=== PATIENT | female | born 1945 | race Caucasian/White ===

== ENCOUNTER 2016-10-06 09:31 | Inpatient (IN) | payer MEDICARE, BC ==
[2016-10-04 12:19] LABS: BASOPHILS 0.3 %; BASOPHILS ABSOLUTE 0.03 10/3/uL (0.0-0.16); EOSINOPHILS 0.2 %; EOSINOPHILS ABSOLUTE 0.02 10/3/uL (0.0-0.53); HEMOGLOBIN 11.7 g/dL (12.0-16.0); IMMATURE GRANULOCYTES 0.2 %; IMMATURE GRANULOCYTES ABSOLUTE 0.02 10/3/uL (0.0-0.11); LYMPHOCYTES ABSOLUTE 1.04 10/3/uL (0.67-4.30); MEAN CORPUS HGB CONC 33.3 g/dL (32.0-36.0); MEAN CORPUSCULAR HEMOGLOB 32.1 pg (26.0-34.0); MEAN CORPUSCULAR VOLUME 96.2 fL (80-100); MEAN PLATELET VOLUME 10.3 fL (9.2-13.0); MONOCYTES 8.2 %; MONOCYTES ABSOLUTE 0.85 10/3/uL (0.21-1.20); NEUTROPHILS 81.1 %; NEUTROPHILS ABSOLUTE 8.43 10/3/uL (2.02-8.40); RBC DISTRIBUTION WIDTH 13.9 % (12.0-16.0); RED CELL COUNT 3.65 10/6/uL (4.0-5.6); WHITE BLOOD CELLS 10.4 10/3/uL (4.5-10.5)
[2016-10-04 12:23] LABS: HEMATOCRIT 35.1 % (36.0-48.0); MANUAL DIFF NO %; PLATELET COUNT 377 10/3/uL (150-400)
[2016-10-04 12:28] LABS: BUN (BLOOD UREA NITROGEN) 13 MG/DL (6-23); CALCIUM, SERUM 8.6 MG/DL (8.5-10.4); CHLORIDE, SERUM 107 MMOL/L (96-112); CO2 (CARBON DIOXIDE) 28 MMOL/L (24-34); CREATININE 0.79 MG/DL (0.55-1.02); GFR AFRICAN AMERICAN 89 ML/MIN (>=60); GFR NON AFRICAN AMERICAN 76 ML/MIN (>=60); GLUCOSE, SERUM 78 MG/DL (60-99); POTASSIUM, SERUM 4.2 MMOL/L (3.5-5.3); SODIUM, SERUM 141 MMOL/L (135-148)
[2016-10-04 12:32] LABS: ASCORBIC ACID (UR NOT ORDER) NEG (NEG); BILIRUBIN, URINE NEGATIVE (NEG); KETONE, URINE NEGATIVE (NEG); LEUKOCYTE ESTERASE(NOT OR NEG (NEG); WBC (NOT ORDERED) (RFLEX) < 1 (0-5)
--- NOTE | ~2016-10-06 | DS ---
Discharge Summary [facility] [address] [place]. [address] NAME: ALINE SARGENT : 49 STATUS : DIS IN PAT#: [id number] AGE: 71 ADM/REG DATE : 10/06/16 MR#: [id number] REPORT SERV DATE: 10/22/16 DICTATED BY: JEAN GUO II DATE: 10/21/16 REPORT STATUS : Draft TRANSCRIBED BY: FLORIAN DATE: 10/21/16 Data Collection from hospitalization DISCHARGE DIAGNOSES: 1. Median arcuate ligament syndrome. 2. Severe chronic mesenteric ischemia. 3. Celiac artery compression syndrome. 4. Hypothyroidism. 5. Anxiety. 6. Migraines. 7. Depression. 8. Former smoker. CONSULTATIONS: None. PROCEDURES: Lateral retroperitoneal exposure of the abdominal aorta, diversion of median arcuate ligament, celiac artery endarterectomy with Bovine patch angioplasty, placement of left thoracostomy tube on 10/06/2016. DISCHARGE MEDICATIONS: Aspirin 81 mg daily, BuSpar 10 mg at bedtime and 5 mg in the morning; vitamin D 5000 units daily, Klonopin 0.25 mg twice a day as needed, vitamin B12 1000 mcg sublingually daily, Estrace 1 mg daily, Prozac 20 mg daily, Synthroid 75 mcg daily, lutein 20 mg every day as instructed, Reglan 10 mg every 8 hours as needed, probiotic one capsule daily, fish oil 1000 mg daily, oxycodone 1-3 tablets every three hours as needed, Desyrel 50 mg at bedtime, methylfolate as instructed. She was instructed not to continue Percocet. CONDITION AT DISCHARGE: Stable. DISPOSITION: The patient was discharged home on a regular diet with activities as instructed. She would follow up with me on 10/27/2016. HOSPITAL COURSE: This is a 71-year-old female, who has had longstanding GI complaints. She had lost more than 20 pounds. She has had chronic abdominal pain. She has an extensive workup which revealed occlusion of the celiac artery, secondary to median arcuate ligament syndrome. She has had previous multiple intraabdominal surgery and was recommended that she undergo retroperitoneal repair. She was admitted to the hospital at this time for further evaluation and treatment. Upon admission, she was taken to the operating room where she underwent the above-mentioned procedure. She tolerated this well. There were no complications. On postop day #1, she was doing well. Her lungs were clear. She had occasional bowel sounds. TOOTH INSPECTOR was increased for pain. She had no nausea or vomiting. She was started on clear liquid diet. On 10/08/2016, she was up sitting in a chair. Pain was related to the chest tube site. She was tolerating clear liquids. The TOOTH INSPECTOR continued. We encouraged her to use incentive spirometry. She continued to have pain related to the chest tube, otherwise, she began to feel better. She had no shortness of breath. She was passing flatus. She remained in the ICU for pneumothorax. On 10/10/2016, she had persistent pneumothorax. She remained in the ICU. She did have some diarrhea. She remained on a full liquid diet. MiraLAX was being Discharge Summary [address] [address] NAME: ALINE SARGENT : 49 STATUS : DIS IN PAT#: [id number] AGE: 71 ADM/REG DATE : 10/06/16 MR#: [id number] REPORT SERV DATE: 10/22/16 DICTATED BY: JEAN GUO II DATE: 10/21/16 REPORT STATUS : Draft TRANSCRIBED BY: FLORIAN DATE: 10/21/16 given. On 10/11/2016, her pain was controlled. She did complain of a headache. She was breathing well. She was tolerating a regular diet. She was changed to oral pain medications. Over the next couple of days, she continued to do well. She had some increased nausea. Scopolamine patch was placed. Her chest x-ray was stable. Discharge planning was performed. Reglan was given. On 10/13/2016, her pain was controlled on oxycodone. She did have a migraine. Her nausea had decreased. Discharge instructions were given. Due to her improved and stable condition, she was discharged home with the above-stated instructions. Information collected by: Helena Jefferson I submit the above information as my discharge summary. GUANAKO/FLORIAN Jean Guo II, M.D. / [id number] CC: Azalea Gómez II, M.D.
--- NOTE | ~2016-10-06 | OP ---
Record Of Operation [facility] [address] [place]. [address] NAME: ALINE UMANZOR : 49 STATUS : ADM IN [facility]#: [id number] AGE: 71 ADM/REG DATE : 10/06/16 MR#: [id number] REPORT SERV DATE: 10/12/16 DICTATED BY: AUGIE GUO II DATE: 10/12/16 REPORT STATUS : Draft TRANSCRIBED BY: MODL DATE: 10/12/16 DATE OF PROCEDURE: 10/06/2016 SURGEON: Augie Guo M.D. KIER PLEATER: Gemini Sharma MD PREOPERATIVE DIAGNOSES: 1. Severe chronic mesenteric ischemia. 2. Celiac artery occlusion, secondary to median arcuate ligament syndrome. POSTOPERATIVE DIAGNOSES: 1. Severe chronic mesenteric ischemia. 2. Celiac artery occlusion, secondary to median arcuate ligament syndrome. PROCEDURE: 1. Lateral retroperitoneal exposure of abdominal aorta. 2. Division of median arcuate ligament. 3. Celiac artery endarterectomy with bovine patch angioplasty. 4. Placement of left thoracostomy tube. ANESTHESIA: General. IV FLUIDS: 2000 mL. ESTIMATED BLOOD LOSS: 50 mL. SPECIMENS: Plaque. CHEST TUBE: 24-Niuean. BRIEF HISTORY: Ms. Umanzor is a pleasant 71-year-old female, who has had long-standing GI complaints, as she has lost more than 20 pounds. She has chronic abdominal pain. She has had extensive workup revealing occlusion of the celiac artery, secondary to median arcuate ligament syndrome. She has had previous multiple intraabdominal surgeries. She was recommended to undergo retroperitoneal repair. DESCRIPTION OF PROCEDURE: She was taken to the operating room and placed in supine position on the table. General anesthesia was achieved. The patient was then placed in the left lateral decubitus position with an axillary roll. We then prepped and draped. The left chest, abdomen, and flank. An incision was made between the 10th and 11th rib extending from the lateral aspect of the rectus to the mid axillary line. The subcutaneous tissues were divided with electrocautery. The fascia was opened and we entered above the 10th rib into the retroperitoneal space. We then swept the peritoneum, the ureter, and abdominal contents to the right. We identified the iliolumbar vein from the left renal and ligated this with 2-0 silk. After dissecting in the superior aspect of the incision, we noticed Record Of Operation [facility] [address] [place]. [address] NAME: ALINE UMANZOR : 49 STATUS : ADM IN PAT#: [id number] AGE: 71 ADM/REG DATE : 10/06/16 MR#: [id number] REPORT SERV DATE: 10/12/16 DICTATED BY: AUGIE GUO II DATE: 10/12/16 REPORT STATUS : Draft TRANSCRIBED BY: MODFemi DATE: 10/12/16 that the incision had extended into the left pleural cavity through a small opening in the diaphragm. We then brought the Omni-Tract retractor into the field. We continued to mobilize bluntly down to the aorta. We then dissected the aorta from the diaphragm down to the left renal artery and we mobilized the aorta completely in this location, exposing the left renal, superior mesenteric, as well as the origin of the celiac artery. At this point, we focused our attention on the median arcuate ligament. The ligament was clearly identified with significant amount of inflammatory and scar tissue present in and around the celiac artery. Using a careful dissection, we completely divided the ligament from the bifurcation of the celiac down to the aorta completely skeletonizing the celiac artery and the aorta both above and below the origin of the celiac artery. The artery was very diseased. There was a cord like structure just beyond the origin out to the bifurcation. At this point, we elected to proceed with open repair of the artery. The patient was heparinized. We placed a side-biting clamp at the origin of the celiac and then occluded the splenic and hepatic arteries with vessel loops. Arteriotomy was made in the celiac artery. The lumen measured less than 3 mm and there was an area of focal occlusion, secondary to fibrous tissue, as well as plaque in the midportion of the celiac artery at the previous site of compression by the median arcuate ligament. We then removed all visible plaque. We then elected to close of the vessel with a patch angioplasty, we closed this with a bovine patch and 6-0 Prolene. Prior to complete closure, we flushed. We then released the clamps. There was excellent flow through the celiac artery. The anastomoses were hemostatic. At this point, we thoroughly irrigated. We contemplated closing the left chest cavity, I concerned about a residual pneumothorax postoperatively, I elected to place a temporary chest tube, we advanced a 24-Niuean tube through a separate incision between the seventh and eighth intercostal space, and we then secured this in place, and then closed the small opening in the diaphragm using a PDS. We then closed the posterior fascia using a running Vicryl, anterior fascia with PDS, and then 3-0 Vicryl were placed in the subdermal tissues, and the skin was closed with Monocryl. At the end of procedure, Ms. Umanzor was stable, she had tolerated it well. She was transported to the recovery room in good condition. LEV/FLORIAN Augie Guo II, M.D. / [id number] CC: Augie Guo II, M.D.
[~2016-10-06 09:31] MED LIST: ASAB PO; BUSPAR10 PO; D 5000 PO; ESTRACE1 MG; ESTRACE1 MG PO; FISH-EPA1000 MG PO; KLONOPIN WAF0.25 MG PO; LUTEIN20 MG PO; METHYL FOLATE; PCET PO; PROBIOTIC PO; PROZAC PO; SYN075 PO; TRAZ50 PO; VITAMIN B-121000 MC1 SL
[2016-10-06 17:36] LABS: BASOPHILS 0.1 %; BASOPHILS ABSOLUTE 0.02 10/3/uL (0.0-0.16); EOSINOPHILS 0 %; HEMATOCRIT 30.5 % (36.0-48.0); HEMOGLOBIN 10.2 g/dL (12.0-16.0); IMMATURE GRANULOCYTES 0.2 %; IMMATURE GRANULOCYTES ABSOLUTE 0.05 10/3/uL (0.0-0.11); LYMPHOCYTES 1.7 %; LYMPHOCYTES ABSOLUTE 0.36 10/3/uL (0.67-4.30); MANUAL DIFF NO %; MEAN CORPUS HGB CONC 33.4 g/dL (32.0-36.0); MEAN CORPUSCULAR VOLUME 95.6 fL (80-100); MEAN PLATELET VOLUME 9.5 fL (9.2-13.0); MONOCYTES 1.6 %; MONOCYTES ABSOLUTE 0.33 10/3/uL (0.21-1.20); NEUTROPHILS 96.4 %; NEUTROPHILS ABSOLUTE 19.86 10/3/uL (2.02-8.40); PLATELET COUNT 306 10/3/uL (150-400); RBC DISTRIBUTION WIDTH 13.4 % (12.0-16.0); RED CELL COUNT 3.19 10/6/uL (4.0-5.6); WHITE BLOOD CELLS 20.6 10/3/uL (4.5-10.5)
[2016-10-06 17:51] LABS: A/G RATIO 0.9 (0.7-1.9); ALBUMIN 2.5 G/DL (3.5-5.0); ALKALINE PHOSPHATASE 58 U/L (45-117); BUN (BLOOD UREA NITROGEN) 13 MG/DL (6-23); CALCIUM, SERUM 7.6 MG/DL (8.5-10.4); CHLORIDE, SERUM 107 MMOL/L (96-112); CO2 (CARBON DIOXIDE) 24 MMOL/L (24-34); CREATININE 0.93 MG/DL (0.55-1.02); GFR AFRICAN AMERICAN 73 ML/MIN (>=60); GFR NON AFRICAN AMERICAN 63 ML/MIN (>=60); GLOBULIN 2.8 G/DL (2.5-4.1); GLUCOSE, SERUM 203 MG/DL (60-99); PHOSPHORUS, SERUM 3.7 MG/DL (2.5-4.5); SGOT(AST) 17 U/L (5-40); SGPT(ALT) 18 U/L (5-65); SODIUM, SERUM 139 MMOL/L (135-148); TOTAL BILIRUBIN 0.3 MG/DL (0-1.2); TOTAL PROTEIN 5.3 G/DL (6.0-8.5)
[2016-10-07 03:40] LABS: BASOPHILS 0 %; EOSINOPHILS 0 %; HEMATOCRIT 30.3 % (36.0-48.0); HEMOGLOBIN 10.2 g/dL (12.0-16.0); IMMATURE GRANULOCYTES 0.2 %; IMMATURE GRANULOCYTES ABSOLUTE 0.03 10/3/uL (0.0-0.11); LYMPHOCYTES 4.9 %; LYMPHOCYTES ABSOLUTE 0.78 10/3/uL (0.67-4.30); MEAN CORPUS HGB CONC 33.7 g/dL (32.0-36.0); MEAN CORPUSCULAR HEMOGLOB 32.3 pg (26.0-34.0); MEAN CORPUSCULAR VOLUME 95.9 fL (80-100); MEAN PLATELET VOLUME 9.5 fL (9.2-13.0); MONOCYTES 5.7 %; NEUTROPHILS 89.2 %; NEUTROPHILS ABSOLUTE 14.13 10/3/uL (2.02-8.40); PLATELET COUNT 318 10/3/uL (150-400); RBC DISTRIBUTION WIDTH 13.5 % (12.0-16.0); RED CELL COUNT 3.16 10/6/uL (4.0-5.6); WHITE BLOOD CELLS 15.8 10/3/uL (4.5-10.5)
[2016-10-07 03:41] LABS: MANUAL DIFF NO %
[2016-10-07 03:52] LABS: BUN (BLOOD UREA NITROGEN) 12 MG/DL (6-23); CALCIUM, SERUM 7.5 MG/DL (8.5-10.4); CHLORIDE, SERUM 105 MMOL/L (96-112); CO2 (CARBON DIOXIDE) 25 MMOL/L (24-34); CREATININE 0.82 MG/DL (0.55-1.02); GFR AFRICAN AMERICAN 85 ML/MIN (>=60); GFR NON AFRICAN AMERICAN 73 ML/MIN (>=60); POTASSIUM, SERUM 4.4 MMOL/L (3.5-5.3); SODIUM, SERUM 141 MMOL/L (135-148)
[2016-10-07 03:53] LABS: GLUCOSE, SERUM 118 MG/DL (60-99)
[2016-10-08 07:15] LABS: BASOPHILS 0.2 %; BASOPHILS ABSOLUTE 0.02 10/3/uL (0.0-0.16); EOSINOPHILS 0.2 %; EOSINOPHILS ABSOLUTE 0.02 10/3/uL (0.0-0.53); HEMATOCRIT 31.1 % (36.0-48.0); HEMOGLOBIN 10.3 g/dL (12.0-16.0); IMMATURE GRANULOCYTES 0.3 %; IMMATURE GRANULOCYTES ABSOLUTE 0.03 10/3/uL (0.0-0.11); LYMPHOCYTES 12.3 %; LYMPHOCYTES ABSOLUTE 1.22 10/3/uL (0.67-4.30); MEAN CORPUS HGB CONC 33.1 g/dL (32.0-36.0); MEAN CORPUSCULAR HEMOGLOB 32.5 pg (26.0-34.0); MEAN CORPUSCULAR VOLUME 98.1 fL (80-100); MEAN PLATELET VOLUME 9.4 fL (9.2-13.0); MONOCYTES 11.9 %; MONOCYTES ABSOLUTE 1.18 10/3/uL (0.21-1.20); NEUTROPHILS 75.1 %; NEUTROPHILS ABSOLUTE 7.45 10/3/uL (2.02-8.40); PLATELET COUNT 282 10/3/uL (150-400); RBC DISTRIBUTION WIDTH 13.7 % (12.0-16.0); RED CELL COUNT 3.17 10/6/uL (4.0-5.6); WHITE BLOOD CELLS 9.9 10/3/uL (4.5-10.5)
[2016-10-08 07:16] LABS: MANUAL DIFF NO %
[2016-10-08 07:32] LABS: BUN (BLOOD UREA NITROGEN) 7 MG/DL (6-23); CALCIUM, SERUM 7.8 MG/DL (8.5-10.4); CHLORIDE, SERUM 106 MMOL/L (96-112); CO2 (CARBON DIOXIDE) 31 MMOL/L (24-34); CREATININE 0.77 MG/DL (0.55-1.02); GFR AFRICAN AMERICAN 91 ML/MIN (>=60); GFR NON AFRICAN AMERICAN 79 ML/MIN (>=60); GLUCOSE, SERUM 79 MG/DL (60-99); POTASSIUM, SERUM 3.8 MMOL/L (3.5-5.3); SODIUM, SERUM 144 MMOL/L (135-148)
[2016-10-08 21:29] LABS: BASOPHILS 0.2 %; BASOPHILS ABSOLUTE 0.02 10/3/uL (0.0-0.16); EOSINOPHILS 0.5 %; EOSINOPHILS ABSOLUTE 0.05 10/3/uL (0.0-0.53); HEMATOCRIT 32.1 % (36.0-48.0); HEMOGLOBIN 10.5 g/dL (12.0-16.0); IMMATURE GRANULOCYTES 0.3 %; IMMATURE GRANULOCYTES ABSOLUTE 0.03 10/3/uL (0.0-0.11); LYMPHOCYTES 11.6 %; LYMPHOCYTES ABSOLUTE 1.27 10/3/uL (0.67-4.30); MEAN CORPUS HGB CONC 32.7 g/dL (32.0-36.0); MEAN CORPUSCULAR HEMOGLOB 32.3 pg (26.0-34.0); MEAN CORPUSCULAR VOLUME 98.8 fL (80-100); MEAN PLATELET VOLUME 9.8 fL (9.2-13.0); MONOCYTES 10.3 %; MONOCYTES ABSOLUTE 1.13 10/3/uL (0.21-1.20); NEUTROPHILS 77.1 %; NEUTROPHILS ABSOLUTE 8.48 10/3/uL (2.02-8.40); PLATELET COUNT 311 10/3/uL (150-400); RBC DISTRIBUTION WIDTH 13.7 % (12.0-16.0); RED CELL COUNT 3.25 10/6/uL (4.0-5.6)
[2016-10-08 21:31] LABS: MANUAL DIFF NO %
[2016-10-08 21:40] LABS: BUN (BLOOD UREA NITROGEN) 5 MG/DL (6-23); CHLORIDE, SERUM 105 MMOL/L (96-112); CO2 (CARBON DIOXIDE) 30 MMOL/L (24-34); CREATININE 0.72 MG/DL (0.55-1.02); GFR AFRICAN AMERICAN 99 ML/MIN (>=60); GFR NON AFRICAN AMERICAN 85 ML/MIN (>=60); GLUCOSE, SERUM 127 MG/DL (60-99); SODIUM, SERUM 143 MMOL/L (135-148)
[2016-10-09 04:07] LABS: BASOPHILS 0.2 %; BASOPHILS ABSOLUTE 0.02 10/3/uL (0.0-0.16); EOSINOPHILS 0.3 %; EOSINOPHILS ABSOLUTE 0.03 10/3/uL (0.0-0.53); HEMATOCRIT 28.9 % (36.0-48.0); HEMOGLOBIN 9.5 g/dL (12.0-16.0); IMMATURE GRANULOCYTES 0.3 %; IMMATURE GRANULOCYTES ABSOLUTE 0.03 10/3/uL (0.0-0.11); LYMPHOCYTES 13.3 %; LYMPHOCYTES ABSOLUTE 1.25 10/3/uL (0.67-4.30); MANUAL DIFF NO %; MEAN CORPUS HGB CONC 32.9 g/dL (32.0-36.0); MEAN CORPUSCULAR HEMOGLOB 32.2 pg (26.0-34.0); MEAN PLATELET VOLUME 9.9 fL (9.2-13.0); MONOCYTES 9.3 %; MONOCYTES ABSOLUTE 0.88 10/3/uL (0.21-1.20); NEUTROPHILS 76.6 %; NEUTROPHILS ABSOLUTE 7.22 10/3/uL (2.02-8.40); PLATELET COUNT 284 10/3/uL (150-400); RBC DISTRIBUTION WIDTH 13.5 % (12.0-16.0); RED CELL COUNT 2.95 10/6/uL (4.0-5.6); WHITE BLOOD CELLS 9.4 10/3/uL (4.5-10.5)
[2016-10-09 04:16] LABS: BUN (BLOOD UREA NITROGEN) 5 MG/DL (6-23); CALCIUM, SERUM 7.8 MG/DL (8.5-10.4); CHLORIDE, SERUM 107 MMOL/L (96-112); CO2 (CARBON DIOXIDE) 32 MMOL/L (24-34); CREATININE 0.77 MG/DL (0.55-1.02); GFR AFRICAN AMERICAN 91 ML/MIN (>=60); GFR NON AFRICAN AMERICAN 79 ML/MIN (>=60); POTASSIUM, SERUM 3.8 MMOL/L (3.5-5.3); SODIUM, SERUM 145 MMOL/L (135-148)
[2016-10-09 04:18] LABS: GLUCOSE, SERUM 96 MG/DL (60-99)
[2016-10-13] MEDS ORDERED: OXYIR5 MG PO (12:11)
[2016-10-13] MEDS ORDERED: REG PO (12:12)
== END 2016-10-13 15:46 | disposition home or self-care (01) | DRG 356 ==
LOC: SDC/OF 09:31 → PACU 17:08 → CVICU 19:52 → 2SO 10-10 18:49
PROVIDERS: Surgery
DX: I77.4 Celiac artery compression syndrome (principal); K55.049 Acute infarction of large intestine, extent unspecified; E03.9 Hypothyroidism, unspecified; F41.9 Anxiety disorder, unspecified; F32.9 Major depressive disorder, single episode, unspecified; G43.909 Migraine, unspecified, not intractable, without status migrainosus; Z98.890 Other specified postprocedural states; Z87.891 Personal history of nicotine dependence; Z82.49 Family history of ischemic heart disease and other diseases of the circulatory system; Z80.3 Family history of malignant neoplasm of breast; Z82.3 Family history of stroke
CPT/HCPCS: 36415; 71010; 71020; 80048; 80053; 81001; 82330; 83735; 84100; 85025; 86850; 86900; 86901; 87641; 93005; A9270-GY; C1768; J0690; J1170; J1644; J2250; J2270; J2370; J2405; J2550; J2710; J2720; J2795; J3010; P9045

== ENCOUNTER 2016-10-23 12:47 | Emergency (ER) | payer MEDICARE, BC ==
[~2016-10-23 12:47] MED LIST changes: +OXYIR5 MG PO; +REG PO
[2016-10-23 14:34] LABS: BASOPHILS 0.6 %; BASOPHILS ABSOLUTE 0.05 10/3/uL (0.0-0.16); EOSINOPHILS 0.1 %; EOSINOPHILS ABSOLUTE 0.01 10/3/uL (0.0-0.53); ER CBC TAT 0 Hrs 10 Mins; IMMATURE GRANULOCYTES 0.1 %; IMMATURE GRANULOCYTES ABSOLUTE 0.01 10/3/uL (0.0-0.11); LYMPHOCYTES 12.4 %; LYMPHOCYTES ABSOLUTE 1.11 10/3/uL (0.67-4.30); MEAN CORPUS HGB CONC 33.8 g/dL (32.0-36.0); MEAN CORPUSCULAR HEMOGLOB 32.4 pg (26.0-34.0); MEAN CORPUSCULAR VOLUME 95.7 fL (80-100); MEAN PLATELET VOLUME 10.6 fL (9.2-13.0); MONOCYTES 9.9 %; MONOCYTES ABSOLUTE 0.89 10/3/uL (0.21-1.20); NEUTROPHILS 76.9 %; NEUTROPHILS ABSOLUTE 6.89 10/3/uL (2.02-8.40); RBC DISTRIBUTION WIDTH 14.1 % (12.0-16.0)
[2016-10-23 14:35] LABS: HEMATOCRIT 40.5 % (36.0-48.0); HEMOGLOBIN 13.7 g/dL (12.0-16.0); MANUAL DIFF NO %; PLATELET COUNT 445 10/3/uL (150-400); RED CELL COUNT 4.23 10/6/uL (4.0-5.6)
[2016-10-23 14:38] LABS: ASCORBIC ACID (UR NOT ORDER) 40 (NEG); BILIRUBIN, URINE NEGATIVE (NEG); ER URINALYSIS TAT 0 Hrs 14 Mins; KETONE, URINE NEGATIVE (NEG); LEUKOCYTE ESTERASE(NOT OR NEG (NEG); NITRITE (URINE) NEG (NEG); WBC (NOT ORDERED) (RFLEX) 4 (0-5)
[2016-10-23 14:44] LABS: D-DIMER QUANTITATIVE 0.84 ug/mLFEU (< 0.50)
[2016-10-23 14:53] LABS: CHLORIDE, SERUM 102 MMOL/L (96-112); CPK 32 U/L (0-200); CREATININE 1.02 MG/DL (0.55-1.02); GFR AFRICAN AMERICAN 65 ML/MIN (>=60); GFR NON AFRICAN AMERICAN 56 ML/MIN (>=60); GLUCOSE, SERUM 102 MG/DL (60-99); POTASSIUM, SERUM 3.9 MMOL/L (3.5-5.3); SGOT(AST) 15 U/L (5-40); SGPT(ALT) 36 U/L (5-65); TOTAL BILIRUBIN 0.3 MG/DL (0-1.2); TROPONIN I <0.02 NG/ML (<0.05)
[2016-10-23 14:57] LABS: A/G RATIO 0.9 (0.7-1.9); ALBUMIN 3.5 G/DL (3.5-5.0); ALKALINE PHOSPHATASE 70 U/L (45-117); BUN (BLOOD UREA NITROGEN) 14 MG/DL (6-23); CALCIUM, SERUM 8.8 MG/DL (8.5-10.4); CK-MB 0.7 NG/ML; CO2 (CARBON DIOXIDE) 23 MMOL/L (24-34); GLOBULIN 3.7 G/DL (2.5-4.1); SODIUM, SERUM 138 MMOL/L (135-148); TOTAL PROTEIN 7.2 G/DL (6.0-8.5)
== END 2016-10-23 18:03 | disposition home or self-care (01) ==
LOC: ER 12:47
PROVIDERS: Nurse Practitioner Family
DX: R11.0 Nausea (principal); F41.9 Anxiety disorder, unspecified; R73.9 Hyperglycemia, unspecified; F32.9 Major depressive disorder, single episode, unspecified; Z79.82 Long term (current) use of aspirin; Z79.899 Other long term (current) drug therapy
CPT/HCPCS: 71020; 71275; 80053; 81001; 82550; 82553; 83690; 83880; 84484; 85025; 85379; 96374; 96376; 99284; J2405; Q9967